=== PATIENT | male | born 1980 | race Caucasian/White ===

== ENCOUNTER 2017-02-25 11:23 | Emergency (ER) | payer OTHER ==
[~2017-02-25] VITALS: Ht 175.3 cm; Wt 86.2 kg
[2017-02-25] MEDS: IBUPROFEN 600 MG TABLET PO ONE (12:17)
[2017-02-25] MEDS ORDERED: IBUPROFEN 600 MG TABLET ONE (12:26)
--- NOTE | 2017-02-25 13:06 | NUR ---
Patient discharged to home in stable conditon. Written and verbal after care instructions given. Patient verbalizes understanding of instructions.
[2017-02-25 13:07] VITALS: BP 140/88
== END 2017-02-25 13:11 | disposition home or self-care (01) ==
LOC: ER 11:24
DX: S02.31XA Fracture of orbital floor, right side, initial encounter for closed fracture (principal); W50.0XXA Accidental hit or strike by another person, initial encounter; Y93.64 Activity, baseball; Y99.8 Other external cause status; Y92.89 Other specified places as the place of occurrence of the external cause
CPT/HCPCS: 70486; A4663